=== PATIENT | female | born 1985 | race Caucasian/White ===

== ENCOUNTER 2021-09-22 23:15 | Emergency (ER) | payer MEDICAID ==
[~2021-09-22] VITALS: Ht 162.6 cm; Wt 86.2 kg
--- NOTE | 2021-09-22 23:52 | NUR ---
Dr. Dale examining patient.
--- NOTE | 2021-09-22 23:53 | NUR ---
PT AMBULATED TO BED 11
--- NOTE | 2021-09-23 00:09 | NUR ---
36 YO F BIBS W C/O LOWER BACK PAIN THAT RADIATES TO LOWER ABD X 2 HOURS. REPORTS NAUSEA. PATIENT STATED SHE WOKE UP IN PAIN. DENIES INJURY, V/D. REPORTS MILD PAIN DURING URINATION. PMH: DENIES CAFFEINE ALLERGY MEDS DENIES
[2021-09-23 00:10] LABS: BASOPHILS # (AUTO) 0.1 K/uL (0.00-0.22); BASOPHILS % (AUTO) 0.4 % (0.0-2.0); EOSINOPHILS # (AUTO) 0.2 K/uL (0-0.4); EOSINOPHILS % (AUTO) 1.8 % (0.0-4.0); HEMATOCRIT 35.7 % (36-48); HEMOGLOBIN 12.1 g/dL (12.0-16.0); LYMPHOCYTES # (AUTO) 3.2 K/uL (2.5-16.5); LYMPHOCYTES % (AUTO) 25.1 % (20.5-51.1); MEAN CORPUSCULAR HEMOGLOBIN 29 pg (27-31); MEAN CORPUSCULAR HGB CONC 34 g/dL (33-37); MEAN CORPUSCULAR VOLUME 85.9 fL (80-94); MONOCYTES # (AUTO) 0.7 K/uL (0.8-1.0); MONOCYTES % (AUTO) 5.7 % (1.7-9.3); NEUTROPHILS # (AUTO) 8.5 K/uL (1.8-7.7); PLATELET COUNT (AUTO) 301 K/uL (140-450); RED BLOOD CELL COUNT(AUTO) 4.15 MIL/uL (4.20-5.40); RED CELL DISTRIBUTION WIDTH 13.6 % (11.6-13.7); WHITE BLOOD COUNT (AUTO) 12.7 K/uL (4.8-10.8)
--- NOTE | 2021-09-23 00:10 | NUR ---
Ultrasound at bedside.
[2021-09-23 00:11] LABS: APPEARANCE,URINE CLEAR (CLEAR); BILIRUBIN,URINE NEGATIVE (NEGATIVE); BLOOD, URINE 3+ (NEGATIVE); COLOR,URINE YELLOW (YELLOW); LEUKOCYTE ESTERASE ,URINE NEGATIVE (NEGATIVE); NITRITE, URINE NEGATIVE (NEGATIVE); UGLUCOSE NEGATIVE (NEGATIVE)
[2021-09-23 00:14] VITALS: BP 140/86
[2021-09-23 00:28] LABS: ALBUMIN 3.5 g/dL (3.4-5.0); ANION GAP 10.6 (8-16); CARBON DIOXIDE 24.5 mmol/L (21-32); CREATININE 0.5 mg/dL (0.6-1.3); POTASSIUM 3.1 mmol/L (3.5-5.1); TOTAL BILIRUBIN 0.2 mg/dL (0.0-1.0)
[2021-09-23 00:39] LABS: WBC,URINE 0-5 /HPF (0-5)
[2021-09-23 00:40] LABS: YEAST,URINE Few /HPF (None Seen)
[2021-09-23] MEDS ORDERED: NACL 0.9% 1,000 ML IV ONE (00:50)
[2021-09-23] MEDS ORDERED: MORPHINE SULFATE 4 MG/ML SYR IVP ONE (00:50)
[2021-09-23] MEDS ORDERED: ONDANSETRON 4 MG/2 ML VIAL IVP ONE (00:50)
[2021-09-23] MEDS ORDERED: ACET-9882 PO (02:30)
--- NOTE | 2021-09-23 02:45 | NUR ---
Patient discharged with v/s stable. Written and verbal after care instructions given and explained. Patient alert, oriented and verbalized understanding of instructions. Ambulatory with steady gait. All questions addressed prior to discharge. ID band removed. Patient advised to follow up with PMD. Rx of ACETAMINOPHEN given. Patient educated on indication of medication including possible reaction and side effects. Opportunity to ask questions provided and answered. A/OX4, VSS, UNLABORED BREATHING, AMBULATORY, AND CALM DEMEANOR.
[2021-09-23 02:52] VITALS: BP 138/88
== END 2021-09-23 02:46 | disposition home or self-care (01) ==
LOC: MED 23:15
DX: O26.891 Other specified pregnancy related conditions, first trimester (principal); R10.9 Unspecified abdominal pain; Z3A.13 13 weeks gestation of pregnancy; Z91.018 Allergy to other foods; Z88.5 Allergy status to narcotic agent
CPT/HCPCS: 36415; 76770; 76801; 80053; 81001; 84702; 85025; 86900; 86901; 87040; 87086; 96361; 96374; 96375; 99284; J2270; J2405; J7030; Q0092